=== PATIENT | male | born 1955 | race Hispanic/Latino ===

== ENCOUNTER 2017-01-04 16:13 | Emergency (ER) | payer BC ==
[2017-01-04 16:43] VITALS: TEMP 97.7
--- NOTE | 2017-01-04 17:02 | C.PDOC ---
History Of Present Illness 61 y/o M c PMHx HTN p/w headache, intermittent blurry vision, R arm tingling and mild weakness. States last time well 8pm last night (21 hours ago). Patient went to see his PMD Nigel today and was instructed to come to the ER for evaluation of CVA vs TIA. States that his arm numbness/weakness is 90% improved. He reports headache remains. Denies fever, chills, trauma, vomiting. Time Seen by Provider: 01/04/17 16:56 Chief Complaint (Nursing): Headache Past Medical History Vital Signs: Last Vital Signs Temp 97.7 F 01/04/17 16:40 Pulse 65 01/04/17 17:31 Resp 19 01/04/17 17:31 BP 126/68 01/04/17 17:31 Pulse Ox 96 01/04/17 17:31 Family History: States: No Known Family Hx - Social History Hx Alcohol Use: Yes Hx Substance Use: No - Immunization History Hx Tetanus Toxoid Vaccination: No Hx Influenza Vaccination: No Hx Pneumococcal Vaccination: No Review Of Systems Except As Marked, All Systems Reviewed And Found Negative. Constitutional: Negative for: Fever Cardiovascular: Negative for: Chest Pain Physical Exam - Physical Exam Additional Physical Exam Comments: Constitutional: No acute distress. Head: Normocephalic. Atraumatic. Eyes: PERRL. EOMI. ENT: Moist mucous membranes. Neck: Supple. Cardiovascular: Regular rate. Radial pulse 2+ bilaterally. Chest: No tenderness. Respiratory: Clear to auscultation bilaterally. GI: Soft. No tenderness. Nondistended. Back: No CVA tenderness. Musculoskeletal: No tenderness or swelling of extremities. Skin: No rash. Neurologic: Alert, no focal deficit. CN II to XII intact. Motor 5/5 x 4. Sensation to light touch equal bilaterally. See NIHSS. ED Course And Treatment - Laboratory Results Result Diagrams: 01/04/17 17:33 01/04/17 17:33 O2 Sat by Pulse Oximetry: 97 Against Medical Advice - AMA Patient Left Against Medical Advice: The patient declines admission to the hospital and wishes to leave the Emergency Department. This action is against my medical advice. This decision was made with informed refusal. The patient was told that admission to the hospital is necessary. Explanation of the reasons why were discussed. The risks of leaving were explained to the patient and include, but are not limited to, worsening of known or currently unknown conditions, permanent disability and from undiagnosed or untreated conditions. The patient has the capacity to make this informed decision and understands my explanation of the current medical problem and risks of leaving. The patient voluntarily accepts these risks and signed an AMA form documenting our conversation. The patient was given the opportunity to ask questions and reconsider. The patient was encouraged to return to the Emergency Department at any time for further care. NIHSS Stroke Scale - Date/Time Evaluation Performed Date Performed: 01/04/17 Time Performed: 17:02 When Was NIHSS Performed: Baseline - How Severe is the [place] Level of Consciousness: 0=Alert LOC to Questions: 0=Both comments correct LOC to commands: 0=Obeys both correctly Best Gaze: 0=Normal Visual: 0=No visual loss Facial: 0=Normal Motor Arm - Left: 0=No drift Motor Arm - Right: 0=No drift Motor Leg - Left: 0=No drift Motor Leg - Right: 0=No drift Limb Ataxia: 0=Absent Sensory: 0=Normal Best Language: 0=No aphasia Dysarthia: 0=Normal articulation Extinction & Inattention (Neglect): 0=Normal, no object Score: 0 Severity Of Stroke: 0= No Stroke rTPA Inclusion/Exclusion - Refusal of Treatment Patient Refused Treatment: No - Inclusion Criteria for Altepase Patient is 18 years or Older: Yes The Clinical Diagnosis of Ischemic Stroke That is Causing a Potentially Disabling Neurological Deficit: No Time of Onset is Well Established to be Less Than 270 Minute Before Treatment Would Begin: No Risk/Benefit Discussed With Patient/Family Member Present: Yes Medical Decision Making Medical Decision Making: CODE STROKE not activated due to time period. Fingerstick performed immediately and normal. FINDINGS: HEMORRHAGE: No intracranial hemorrhage. BRAIN: No mass effect or edema. No atrophy or chronic microvascular ischemic changes. VENTRICLES: Unremarkable. No hydrocephalus. CALVARIUM: Unremarkable. PARANASAL SINUSES: Unremarkable as visualized. No significant inflammatory changes. MASTOID AIR CELLS: Unremarkable as visualized. No inflammatory changes. OTHER FINDINGS: None. IMPRESSION: No evidence of acute intracranial hemorrhage territorial infarct mass effect or midline shift. Aspirin administered. Arm numbness/weakness is completely gone. Patient and I discussed his results and given that he had TIA symptoms and his ABCD2 score is 6, I recommended further observation, but the patient declined and wished to leave against medical advice. I informed him that he could return at any time. Disposition - Disposition Disposition: AGAINST MEDICAL ADVICE Disposition Time: 18:48 Condition: FAIR Instructions: Transient Ischemic Attack (ED) Forms: (AMA) Informed Refusal - Clinical Impression Clinical Impression: Headache, Arm numbness, TIA (transient ischemic attack)
--- NOTE | 2017-01-04 17:14 | CT ---
PROCEDURE: CT HEAD WITHOUT CONTRAST. HISTORY: headache, R arm numbness/weakness COMPARISON: None available. TECHNIQUE: Axial computed tomography images were obtained through the head/brain without intravenous contrast. Radiation dose: Total exam DLP = 903.7 mGy-cm. This CT exam was performed using one or more of the following dose reduction techniques: Automated exposure control, adjustment of the mA and/or kV according to patient size, and/or use of iterative reconstruction technique. FINDINGS: HEMORRHAGE: No intracranial hemorrhage. BRAIN: No mass effect or edema. No atrophy or chronic microvascular ischemic changes. VENTRICLES: Unremarkable. No hydrocephalus. CALVARIUM: Unremarkable. PARANASAL SINUSES: Unremarkable as visualized. No significant inflammatory changes. MASTOID AIR CELLS: Unremarkable as visualized. No inflammatory changes. OTHER FINDINGS: None. IMPRESSION: No evidence of acute intracranial hemorrhage territorial infarct mass effect or midline shift.
[2017-01-04 17:38] LABS: BASO # 0.1 K/uL (0.0-0.2); BASO % 0.8 % (0.0-2.0); EOS # 0.3 K/uL (0.0-0.7); EOS % 2.5 % (0.0-4.0); HEMATOCRIT 48.7 % (35.0-51.0); LYMPH # 3.4 K/uL (1.0-4.3); LYMPH % 32.2 % (20.0-40.0); MEAN CORPUSCULAR HEMOGLOBIN 29.9 pg (27.0-31.0); MEAN CORPUSCULAR HGB CONC 33.5 g/dL (33.0-37.0); MEAN PLATELET VOLUME 8.3 fL (7.2-11.7); MONO % 9.9 % (0.0-10.0); RED CELL DISTRIBUTION WIDTH 13.1 % (11.5-14.5); WHITE BLOOD COUNT 10.6 K/uL (4.8-10.8)
[2017-01-04 17:45] LABS: CHLORIDE 102 mmol/L (98-107)
[2017-01-04 17:46] LABS: SODIUM 137 mmol/L (132-148)
[2017-01-04 17:48] LABS: CARBON DIOXIDE 22 mmol/L (22-30); CHOLESTEROL 283 mg/dL (0-199); GFR AFRICAN-AMERICAN > 60
[2017-01-04 17:49] LABS: ALB/GLOB RATIO 1.2 (1.0-2.1); ALKALINE PHOSPHATASE 58 U/L (38-126); ALT/SGPT 23 U/L (21-72); AST/SGOT 26 U/L (17-59); BILIRUBIN,TOTAL 1.2 mg/dL (0.2-1.3); BLOOD UREA NITROGEN 17 mg/dL (9-20); CALCIUM 9.6 mg/dl (8.6-10.4); GLUCOSE,RANDOM 93 mg/dL (75-110); TOTAL PROTEIN 8.1 g/dL (6.3-8.3)
[2017-01-04 19:07] VITALS: BP 146/98; PULSE 63; RESP 20; O2SAT 95
--- NOTE | 2017-01-05 08:49 | RAD ---
HISTORY: R arm weakness/numbness COMPARISON: No prior. FINDINGS: LUNGS: No active pulmonary disease. PLEURA: No significant pleural effusion identified, no pneumothorax apparent. CARDIOVASCULAR: Normal. OSSEOUS STRUCTURES: No significant abnormalities. VISUALIZED UPPER ABDOMEN: Normal. OTHER FINDINGS: None. IMPRESSION: No active disease.
== END 2017-01-04 19:07 | disposition left against medical advice (07) ==
LOC: C.ER 16:13
DX: G45.9 Transient cerebral ischemic attack, unspecified (principal); R51 Headache; R20.0 Anesthesia of skin; I10 Essential (primary) hypertension
CPT/HCPCS: 70450; 71010; 80053; 80061; 83036; 84484; 85025; 85610; 85730; 86850; 86900; 96374; 99285; J2405